=== PATIENT | male | born 1945 | race Caucasian/White ===

== ENCOUNTER 2024-09-16 15:59 | Emergency (ER) | payer OTHER, SELFPAY ==
[2024-09-16 16:09] VITALS: BP 123/59; PULSE 60; RESP 18; TEMP 36.4; O2SAT 98; BMI 25.7
--- NOTE | 2024-09-16 16:14 | EKG_ITS ---
[address] [address] Test Date: 2024-09-16 Pat Name: Facundo Santiago Department: [facility] Room: Gender: Male Assistant Office Manager: LUKASZ : 1945 Requested By: Order Number: [id number] Reading MD: Yogi Oleary Measurements Intervals [place] Rate: 60 P: 7 MO: 196 QRS: 88 QRSD: 148 T: 104 QT: 468 QTc: 468 Interpretive Statements AV dual-paced rhythm Electronically Signed On 09-16-2024 20:12:12 PDT by Yogi Oleary
[2024-09-16 16:46] LABS: Add Manual Diff / Slide Review NO; Basophils Absolute Auto 100 /uL (0-100); Basophils Percent Auto 0.7 % (0-2); Eosinophils Absolute Auto 200 /uL (0-450); Eosinophils Percent Auto 2.6 % (2-4); Hematocrit 43.8 % (41-53); Hemoglobin 14.7 g/dL (13.5-17.5); Lymphocytes Absolute Auto 900 /uL (1100-4500); Mean Corpuscular HGB Conc 33.6 % (30-36); Mean Corpuscular Hemoglobin 30.3 PG (26-34); Mean Corpuscular Volume 90.2 fL (80-100); Monocytes Absolute Auto 400 /uL (0-900); Neutrophils Absolute Auto 5800 /uL (1500-7000); Neutrophils Percent Auto 78.7 % (50-75); Platelet Count 135 X10^3/uL (150-400); Red Blood Cell Count 4.86 X10^6/uL (4.5-5.9); Red Cell Distribution Width 14.7 % (11.6-14.8); White Blood Cell Count 7.4 X10^3/uL (4.5-11.0)
[2024-09-16 16:56] LABS: Alanine Aminotransferase 35 IU/L (<50); Albumin 4.6 g/dL (3.5-5.0); Albumin Globulin Ratio 1.6 (1.0-2.8); Alkaline Phosphatase 55 U/L (38-126); Aspartate Aminotransferase 36 IU/L (17-59); BUN Creatinine Ratio 17.9 (6-22); Bilirubin Total 1.2 mg/dL (0.2-1.3); Blood Urea Nitrogen 22 mg/dL (9-20); Calcium 9.6 mg/dL (8.4-10.2); Carbon Dioxide 29 mmol/L (22-32); Chloride 102 mmol/L (98-107); Estimated Glomerular Filt Rate > 60 mL/min (>60); Globulin 2.8 g/dL (1.7-4.1); Glucose 225 mg/dL (80-110); HEMOLYSIS < 15 (0-50); Lipase 51 U/L (23-300); Potassium 4.3 mmol/L (3.4-5.1); Sodium 138 mmol/L (137-145); Total Protein 7.4 g/dL (6.3-8.2)
--- NOTE | 2024-09-16 19:04 | DI.US.S_ITS ---
PROCEDURE: US ABDOMEN LIMITED INDICATIONS: RUQ PAIN TECHNIQUE: Real-time scanning was performed of the abdominal and retroperitoneal organs, with image documentation. COMPARISON: None. FINDINGS: Liver: Liver is normal in size and diffusely increased in echogenicity. Gallbladder: Multiple non mobile gallbladder calculi are seen measuring up to 4 mm. No wall thickening. No pericholecystic edema. Negative sonographic Hicks's sign. Biliary ducts: Intrahepatic bile ducts are non-dilated. Extrahepatic bile duct caliber measures 5.3 mm. Normal is 6-7 mm or less in diameter, or 10 mm or less post-cholecystectomy. Pancreas: Not well visualized due to overlying bowel gas. Miscellaneous: No free abdominal fluid. IMPRESSION: 1. Cholelithiasis without sonographic signs of acute cholecystitis. 2. Diffusely increased hepatic echogenicity is nonspecific, but most commonly encountered in the setting of hepatic steatosis. However, other causes of hepatocellular disease are not excluded. Recommend clinical correlation. Approved by: Guero Guerin M.D. on 09/16/2024 at 20:31
--- NOTE | 2024-09-16 20:40 | ED_ITS ---
HPI - Abdominal Pain General Chief Complaint: Abdominal Pain Stated Complaint: gall bladder issue Time Seen by Provider: 09/16/24 20:21 Source: patient Mode of arrival: Wheelchair History of Present Illness HPI narrative: Patient is a 79-year-old male history of coronary artery disease CABG bypass x3 hypertension hyperlipidemia presenting today with right upper quadrant pain ongoing for the last 2 weeks. No nausea or vomiting no fever. She was reports it is getting a little bit worse. Denies any sort of chest pain shortness of breath or any other symptoms. Pain is nonradiating. Related Data Home Medications Medication Instructions Recorded Confirmed aspirin 81 mg chewable tablet 81 mg PO QDAY ##0 04/16/17 cholecalciferol (vitamin D3) 125 5,000 unit PO ##0 04/16/17 mcg (5,000 unit) capsule cyanocobalamin (vitamin B-12) 1,000 mcg PO ##0 04/16/17 1,000 mcg tablet,extended release gabapentin 600 mg tablet,extended 600 mg PO QDAY ##0 04/16/17 release 24 hr (Gralise) losartan 100 mg tablet (Cozaar) ##0 04/16/17 metoprolol succinate 25 mg 25 mg PO QDAY ##0 04/16/17 tablet,extended release 24 hr (Toprol XL) omeprazole 20 mg capsule,delayed 20 mg PO QDAY ##0 04/16/17 release pyridoxine (vitamin B6) 100 mg 100 mg PO QDAY ##0 04/16/17 tablet rosuvastatin 20 mg tablet (Crestor) ##0 04/16/17 Previous Rx's Medication Instructions Recorded amoxicillin 875 mg-potassium 875 mg PO BID #20 tabs 04/16/17 clavulanate 125 mg tablet (Augmentin) codeine 10 mg-guaifenesin 100 mg/5 5 ml PO QHS #60 mL 04/16/17 mL oral liquid Allergies Allergy/AdvReac Type Severity Reaction Status Date / Time morphine [MORPHINE] Allergy Severe DEADLY Unverified 09/12/17 11:49 Patient History Social History Smoking Status: Never smoker Smoking Status: Never smoker Alcohol type: wine Exam Initial Vital Signs Initial Vital Signs: Vital Signs Temperature 97.5 F L 09/16/24 16:09 Pulse Rate 60 09/16/24 16:09 Respiratory Rate 18 09/16/24 16:09 Blood Pressure 123/59 L 09/16/24 16:09 Pulse Oximetry 98 09/16/24 16:09 Oxygen Delivery Method Room Air 09/16/24 16:09 GENERAL: Alert pleasant 79-year-old male and in no acute distress. HEENT: Head atraumatic,EOMI, pupils reactive, face symmetric, moist mucous membranes CARDIOVASCULAR: Regular rate and rhythm without murmurs, rubs or gallops. RESPIRATORY: Breath sounds equal bilaterally, no wheezes rales or rhonchi. ABDOMEN: Soft, minimal tenderness negative Hicks's sign no guarding no rebound EXTREMITIES: Normal range of motion, no clubbing or edema. Neurovascularly intact NEUROLOGICAL: Alert and oriented x4.Normal gait and speech. SKIN: Warm, dry, no laceration, no petechiae, no rashes or lesions. Course Orders Ordered: ED Orders 09/16/24 19:04 US abdomen limited Stat Discontinued Medications Ondansetron HCl (Ondansetron 4 Mg/2 Ml Inj) 4 mg IV NOW PRN PRN Reason: Nausea And Vomiting Ondansetron HCl (Ondansetron 4 Mg Odt) 4 mg PO NOW PRN PRN Reason: Nausea And Vomiting Vital Signs Vital signs: Vital Signs - 8 hr 09/16/24 21:03 Pulse Rate 60 Respiratory Rate 18 Blood Pressure 130/71 Pulse Oximetry 97 Oxygen Delivery Method Room Air MDM - Abdominal Pain Lab Data 09/16/24 16:35 09/16/24 16:35 Labs: Lab Results 09/16/24 Range/Units 16:35 WBC 7.4 (4.5-11.0) X10^3/uL RBC 4.86 (4.5-5.9) X10^6/uL Hgb 14.7 (13.5-17.5) g/dL Hct 43.8 (41-53) % MCV 90.2 (80-100) fL MCH 30.3 (26-34) PG MCHC 33.6 (30-36) % RDW 14.7 (11.6-14.8) % Plt Count 135 L (150-400) X10^3/uL Neut % (Auto) 78.7 H (50-75) % Lymph % (Auto) 12.0 L (25-40) % [place] % (Auto) 6.0 (3-14) % Eos % (Auto) 2.6 (2-4) % Baso % (Auto) 0.7 (0-2) % Neut # (Auto) 5800 (9461-2458) /uL Lymph # (Auto) 900 L (1589-3170) /uL [place] # (Auto) 400 (0-900) /uL Eos # (Auto) 200 (0-450) /uL Baso # (Auto) 100 (0-100) /uL Sodium 138 (137-145) mmol/L Potassium 4.3 (3.4-5.1) mmol/L Chloride 102 (98-107) mmol/L Carbon Dioxide 29 (22-32) mmol/L BUN 22 H (9-20) mg/dL Creatinine 1.23 (0.66-1.25) mg/dL Estimated GFR > 60 (>60) mL/min BUN/Creatinine Ratio 17.9 (6-22) Glucose 225 H (80-110) mg/dL Calcium 9.6 (8.4-10.2) mg/dL Total Bilirubin 1.2 (0.2-1.3) mg/dL AST 36 (17-59) IU/L ALT 35 (<50) IU/L Alkaline Phosphatase 55 (38-126) U/L Total Protein 7.4 (6.3-8.2) g/dL Albumin 4.6 (3.5-5.0) g/dL Globulin 2.8 (1.7-4.1) g/dL Albumin/Globulin Ratio 1.6 (1.0-2.8) Lipase 51 (23-300) U/L Point of care testing: Urine Dip Bedside Urine Glucose 1000 mg/dl Bedside Urine Bilirubin - Negative Bedside Urine Ketone - Negative Urine Specific [place] 1.015 Bedside Urine Occult Blood - Negative Bedside Urine pH 5.5 Bedside Urine Protein - Negative Bedside Urine Urobilinogen - Negative Bedside Urine Nitrite - Negative Bedside Urine Leukocytes - Negative Esterase Imaging Data US - abdomen: Radiologist's Impression: PROCEDURE: US ABDOMEN LIMITED INDICATIONS: RUQ PAIN TECHNIQUE: Real-time scanning was performed of the abdominal and retroperitoneal organs, with image documentation. COMPARISON: None. FINDINGS: Liver: Liver is normal in size and diffusely increased in echogenicity. Gallbladder: Multiple non mobile gallbladder calculi are seen measuring up to 4 mm. No wall thickening. No pericholecystic edema. Negative sonographic Hicks's sign. Biliary ducts: Intrahepatic bile ducts are non-dilated. Extrahepatic bile duct caliber measures 5.3 mm. Normal is 6-7 mm or less in diameter, or 10 mm or less post-cholecystectomy. Pancreas: Not well visualized due to overlying bowel gas. Miscellaneous: No free abdominal fluid. IMPRESSION: 1. Cholelithiasis without sonographic signs of acute cholecystitis. 2. Diffusely increased hepatic echogenicity is nonspecific, but most commonly encountered in the setting of hepatic steatosis. However, other causes of hepatocellular disease are not excluded. Recommend clinical correlation. Approved by: Guero Guerin M.D. on 09/16/2024 at 20:31 ECG Data Attestation: I personally reviewed and interpreted this ECG as follows: Prior ECG tracings: available for review Interpretation: Sinus rhythm rate 60 no acute changes pacemaker noted MDM Narrative Medical decision making narrative: Patient is a 79-year-old male history coronary artery disease presenting today with reproducible right upper quadrant pain. He has been ongoing for the last 2 weeks nonradiating no nausea no vomiting. Blood work has been reviewed no leukocytosis no anemia Electrolytes within normal limits creatinine 1.23 Bilirubin 1.2 AST 36 ALT 35 alk-phos 55 lipase 51 Ultrasound does show cholelithiasis without evidence of acute cholecystitis EKGs reviewed no ischemia Patient is presenting with right upper quadrant pain off and on further 2 weeks. He has minimal tenderness on exam. Blood work is overall reassuring without elevation bilirubin or liver enzymes ultrasound confirms cholelithiasis. He was no evidence of acute cholecystitis or ascending cholangitis or pancreatitis. He appears well and nontoxic. Recommend he follow up outpatient with General surgery. Discharge Plan Departure Patient Disposition: Home Clinical Impression: Cholelithiasis Instructions: Gallstones Activity Restrictions/Additional Instructions: *You have been diagnosed with gallstones *What to do: At this time please follow-up with surgery to have your gallbladder removed. Nonemergent today however the sooner the better. I do recommend that he follow a gallbladder diet, please Google *Continue to take medications as directed Tylenol Motrin as needed for pain *Follow up with your primary care provider in 2-3 days or call [phone] [facility] to schedule follow-up appointment *Return to ER if you should have increasing pain nausea vomiting fever or any new, worsening or concerning symptoms Prescriptions: No Action aspirin 81 MG tablet,chewable 81 mg PO QDAY Qty: 0 gabapentin [Gralise] 600 MG tablet extended release 24 hr 600 mg PO QDAY Qty: 0 losartan [Cozaar] 100 MG tablet Qty: 0 rosuvastatin [Crestor] 20 MG tablet Qty: 0 omeprazole 20 MG capsule,delayed release(DR/EC) 20 mg PO QDAY Qty: 0 pyridoxine (vitamin B6) 100 MG tablet 100 mg PO QDAY Qty: 0 metoprolol succinate [Toprol XL] 25 MG tablet extended release 24 hr 25 mg PO QDAY Qty: 0 cyanocobalamin (vitamin B-12) 1,000 MCG tablet extended release 1,000 mcg PO Qty: 0 cholecalciferol (vitamin D3) 5,000 UNIT capsule 5,000 unit PO Qty: 0 codeine-guaifenesin 100 MG/10 MG liquid 5 ml PO QHS Qty: 60 0RF amoxicillin-pot clavulanate [Augmentin] 875 MG/125 MG tablet 875 mg PO BID Qty: 20 0RF Referrals: [facility] [Provider Group] Miscellaneous,Doctor, MD [Primary Care Provider] - Stand Alone Forms: Patient Portal/API/Survey
[2024-09-16 21:03] VITALS: BP 130/71; PULSE 60; RESP 18; O2SAT 97
== END 2024-09-16 21:10 | disposition home or self-care (01) ==
PROVIDERS: Emergency Medicine; Emergency Provider Emergency Medicine
DX: K80.20 Calculus of gallbladder without cholecystitis without obstruction (principal)
CPT/HCPCS: 36415; 76705; 80053; 81003; 83690; 85025; 93005; 99283; 99284